=== PATIENT | female | born 1960 | race Caucasian/White ===

== ENCOUNTER 2017-01-09 10:25 | Day surgery (SDC) | payer OTHER ==
[~2017-01-09] VITALS: Ht 165.1 cm; Wt 52.0 kg
[~2017-01-09 10:25] MED LIST: 0.9% Sodium Chloride 1,000 ML IV SCH; AMIT10TA6 PO; AMT25T PO; BUTA1CAP39 PO; CLON1TAB PO; ESTR1PAT81 TRANSDERM; LAMO25TA2 PO; MIRA25TA PO; MULT-1093 PO; OMEG-38 PO; OMEP20CA11 PO; PHEN-777 PO; Sodium Chloride LOK Flush 10 mL Syringe IV PRN; VIT1TABL83 PO; fentaNYL-PF 50 mCg/mL 2 mL Inj IVPUSH PRN
[2017-01-09] MEDS ORDERED: RANI150T11 PO (11:01)
[2017-01-09] MEDS ORDERED: PROZ20 PO (11:01)
[2017-01-09] MEDS ORDERED: RES30 PO (11:01)
[2017-01-09 11:02] VITALS: BP 115/67; PULSE 72; RESP 16; O2SAT 100
[2017-01-09 11:54] VITALS: BP 103/55; PULSE 58; RESP 14; O2SAT 99
[2017-01-09 12:05] VITALS: BP 101/54; PULSE 71; RESP 14; O2SAT 95
[2017-01-09 12:09] VITALS: BP 102/66; PULSE 71; RESP 14; O2SAT 96
--- NOTE | 2017-01-09 13:05 | ENDO ---
[address] [address] ENDOSCOPY PROCEDURE PATIENT: KRISTIAN ARROYO : 1960 MR#: [id number] ADMIT: 01/09/2017 JOB ID: [id number] DATE: 01/09/2017 TYPE OF OPERATION: Esophagogastroduodenoscopy with biopsy. PREOPERATIVE DIAGNOSIS(ES): Gastroesophageal reflux disease. POSTOPERATIVE DIAGNOSIS(ES): Mild nonerosive gastritis, status post biopsy. ANESTHESIA: Fentanyl 125 mcg, versed 9 mg IV administered. COMPLICATIONS: None. BLOOD LOSS: Minimal. DESCRIPTION OF PROCEDURE: After risks and benefits were explained to the patient, informed consent was obtained. After anesthesia administered, an upper endoscope was inserted into the mouth, intubated to the esophagus, stomach, second portion of duodenum and mucosa carefully examined. After procedure was done, the scope was withdrawn and the procedure terminated. FINDINGS: Upon inspection of the esophagus, esophagus was normal without masses, ulcers, or lesions. Z-line located at 40 cm from the incisors. Upon entering the stomach, there was mild nonerosive gastritis that was seen. No masses, ulcers were seen. Retroflexion was normal. Duodenal bulb, first and second portion were normal. Biopsied in antrum, body, mid, and distal esophagus. IMPRESSION: Mild nonerosive gastritis, status post biopsy. RECOMMENDATIONS: Await pathology results. Follow up in GI clinic as needed.
--- NOTE | 2017-01-12 14:32 | PATH ---
SURGICAL PATHOLOGY Attending Physician:Chris Tubbs MD CASE STATUS: Signed Out PATIENT NAME: KRISTIAN ARROYO PID: [id number] : 1960 DATE COLLECTED:01/09/2017 16:41 SPECIMEN: 1: Gastric, Biopsy 2: Gastric, Biopsy 3: Esophagus, Biopsy 4: Esophagus, Biopsy CLINICAL HISTORY: 1). GASTRIC ANTRUM (RULE OUT H.PYLORI) 2). GASTRIC BODY 3). DISTAL ESOPHAGUS 4). MID ESOPHAGUS FINAL DIAGNOSIS: 1.GASTRIC ANTRUM BIOPSY: DIFFUSE MILD TO MODERATE CHRONIC GASTRITIS INVOLVING ANTRAL MUCOSA. Immunohistochemistry for Helicobacter pending, to be reported by addendum. Negative for intestinal metaplasia. Negative for dysplasia and malignancy. 2.GASTRIC BODY BIOPSIES: DIFFUSE MILD CHRONIC GASTRITIS INVOLVING FUNDIC MUCOSA. Immunohistochemistry for Helicobacter pending, to be reported by addendum. Negative for intestinal metaplasia. Negative for dysplasia and malignancy. 3.BIOPSIES, DISTAL ESOPHAGUS: FRAGMENTS OF SQUAMOUS EPITHELIUM WITH NO GASTRIC-TYPE EPITHELIUM IDENTIFIED. Negative for significant atypia. Negative for intraepithelial eosinophils. 4.MID ESOPHAGUS BIOPSIES: FRAGMENTS OF SQUAMOUS EPITHELIUM NEGATIVE FOR ATYPIA. Negative for intraepithelial eosinophils. ICD10 K29.70 GROSS DESCRIPTION: The specimens are received in formalin, labeled with the patient's name, and sublabeled as the following: (1) gastric antrum + r/o H. pylori; (2) gastric body; (3) distal esophagus; (4) mid esophagus. (1) The specimen consists of a fragment of hartman-white glistening rubbery translucent tissue (0.7 x 0.3 x 0.2 cm). Section code: (1A) tissue. Specimen entirely submitted. (2) The specimen consists of multiple fragments of harmtan-white glistening membrane semitranslucent tissue (0.7 x 0.3 x 0.2 cm in aggregate). Section code: (2A) tissue. Specimen entirely submitted. (3) The specimen consists of multiple fragments of thao-white glistening translucent tissue (0.5 x 0.2 x 0.2 cm in aggregate). Section code: (3A) tissue. Specimen entirely submitted. (4) The specimen consists of multiple fragments of clear colorless glistening tissue (0.8 x 0.3 x 0.1 cm in aggregate). Section code: (4A) tissue. Specimen entirely submitted. 01/10/17 JM MICRO DESCRIPTION: See diagnosis. ICD-9 CODES: CPT CODES: 1: 82967, 07512 2: 42142, 35656 3: 63973 4: 88252 PROCEDURE/ADDENDA: Immunohistochemistry SPI Interpretation {Not Entered} Results-Comments Immunohistochemistry Results: 1.GASTRIC ANTRUM BIOPSY: NEGATIVE FOR HELICOBACTER PYLORI BY IMMUNOHISTOCHEMISTRY. 2.GASTRIC BODY BIOPSY: NEGATIVE FOR HELICOBACTER PYLORI BY IMMUNOHISTOCHEMISTRY. This test was developed and its performance characteristics determined by [employer]. It has not been cleared or approved by the U. S. Food and Drug Administration. The FDA has determined that such clearance or approval is not necessary. This test is used for clinical purposes. It should not be regarded as investigational or for research. Electronically Signed Out Gordon Greene MD Electronically Signed Out Gordon Greene MD [facility] [address], [place] [address] Technical component performed at [facility], [facility] [address], [place], [address]
== END 2017-01-09 23:59 | disposition home or self-care (01) ==
LOC: END 10:25
PROVIDERS: ATTEND Internal Medicine Gastroenterology
DX: K21.9 Gastro-esophageal reflux disease without esophagitis (principal); K29.50 Unspecified chronic gastritis without bleeding
CPT/HCPCS: 43239; 88305; 88342; 99152; 99153; J2250; J3010; J7030

== ENCOUNTER → 2017-02-18 | Day surgery (SDC) | payer OTHER ==
[2017-02-18] VITALS (12 sets, daily range): BP systolic 77–127; BP diastolic 36–68; PULSE 55–66; RESP 12–16; O2SAT 95–98
[~2017-02-18] VITALS: Ht 167.6 cm; Wt 53.8 kg
[~2017-02-18] MED LIST changes: -0.9% Sodium Chloride 1,000 ML IV SCH; -AMIT10TA6 PO; -AMT25T PO; +Botulinum Toxin Type-A 100 unit Inj IM ONE; +CeFAZolin Inj 2 GM in IV Premix 1 EACH IV SCH; +Dexamethasone 4 mg/mL Inj IVPUSH PRN; +Dexamethasone 4 mg/mL Inj ONE; +EPHEDrine Sulfate 50 mg/mL Inj IVPUSH PRN; +ESOM40CA41 PO; +FLUO10CA30 PO; +HYDROmorphone 1 mg/mL Inj IVPUSH PRN; +LACT1CAP75 PO; +Lactated Ringer's 1,000 ML IV SCH; +Lactated Ringer's 500 ML IV PRN; -MIRA25TA PO; +MetoCLOpramide 5 mg/mL 2 mL Inj IVPUSH PRN; +MetoCLOpramide 5 mg/mL 2 mL Inj ONE; -OMEP20CA11 PO; +Ondansetron 2 mg/mL 2 mL Inj IVPUSH PRN; +Ondansetron 2 mg/mL 2 mL Inj ONE; +Phenylephrine 10,000 mCg/mL Inj IVPUSH PRN; +Propofol 10,000 mCg/mL 20 mL Inj ONE; +RES30 PO; -Sodium Chloride LOK Flush 10 mL Syringe IV PRN; -fentaNYL-PF 50 mCg/mL 2 mL Inj IVPUSH PRN
[2017-02-18] MEDS: Lactated Ringer's 1,000 ML IV SCH ×2 (07:44→09:30)
--- NOTE | 2017-02-18 09:20 | PCM.HPANE ---
Patient Data Surgeon Admitting Provider: Attending Provider:Nedra Isabel MD Primary Care Physician:Feli Mejia PA-C Other Provider:Jose Maria Fisher Anesthesia Reason for Visit Overactive Bladder, Interstitial Cystitis Ht/WT & BMI Height (Feet): 5 Height (Inches): 6.00 Weight (Kilograms): 53.8 Body Mass Index 19.00 Allergies Coded Allergies: nitrofurantoin (Verified Allergy, Severe, Hives, 02/12/17) Past Anesthesia History Anesthesia History: Denies:: Abnormal Airway, Anesthesia Reactions, Difficult Intubation, Fam Anesthesia Reaction, Fam Malignant Hypertherm, Malignant Hyperthermia Diabetes History Hx Diabetes?: No MRSA MRSA: No Medications Home Meds Incl Beta Marcella: No Reported Medications Fluoxetine (Prozac)10 Mg Dgvoamy31 Mg PO DAILY Ref 0 02/12/17 Lactobacillus Combo No.10 (Probiotic)1 Each Capsule1 Each PO 02/12/17 Esomeprazole Magnesium (Nexium)40 Mg Capsule.dr40 Mg PO BID Ref 0 02/12/17 Temazepam 30 Mg Cap30 Mg PO HS PRN For Insomnia 30 Days Ref 0 01/09/17 Phenazopyridine 200 Mg Xymglx809 Mg PO TID PRN For Urinary Retention Ref 0 01/08/17 Multivitamin-Min/Iron/FA/Vit K (Multi-Day Plus Minerals Tablet)18 Mg Iron-400 Mcg-25 Mcg Tablet1 Each PO DAILY 01/08/17 Lamotrigine (Lamictal)25 Mg Hmtnpw69 Mg PO DAILY #30 TABLET Ref 0 01/08/17 Clonazepam (Klonopin)1 Mg Tablet1 Mg PO DAILY PRN For Anxiety Ref 0 01/08/17 Randolph-3/Dha/Epa/Fish Oil (Fish Oil 1,000 mg Softgel)1 Each Capsule1 Each PO DAILY 01/08/17 Butalbital/Acetamin/Caff 50-300-40 mg (Fioricet 50-300-40 mg)1 Each Capsule1 Capsule PO Q4H PRN For Headache Ref 0 01/08/17 Estradiol 0.05 mg/24 hr Patch 1 Each Patch.tdwk1 Patch TRANSDERM WEEKLY Ref 0 01/08/17 Vit B Comp/C/FA/Iron/Vit E (Vitamin B Complex Tablet)1 Each Tablet1 Each PO DAILYWD 01/08/17 Discontinued Reported Medications Ranitidine (Zantac)150 Mg Azulkn750 Mg PO DAILY PRN For Dyspepsia or Heartburn 01/09/17 Fluoxetine (Prozac)20 Mg Uowvion48 Mg PO DAILY Ref 0 01/09/17 History History of ENT Problems?: No HEENT History: Denies:: Abnormal Airway Cataracts Difficult Intubation Dysphagia Glaucoma Hearing Problem Sinus Problem TMJ Denture Type: None Teeth Condition: Within Normal Limits Hx of Heart Problems?: No Cardiovascular History: Denies:: AICD Pacemaker Peripheral Vascular Valvular Heart Disease Hx of Respiratory Problem?: No Respiratory History: Denies:: Use of C-PAP Machine Hx Neurologic Problems?: Yes Neurological History: Positive for:: Headaches (daily headaches) Denies:: Alzheimer's Disease CVA Dementia Dizziness Multiple Sclerosis Parkinson's Disease Seizures TIA Hx of GI Problems?: Yes Hx of Problems?: No Genitourinary History: Denies:: HX of Hemodialysis Kidney Stones Urinary Tract Infection HX of Peritoneal Dialysis: No Female Hx: Positive for:: Problems with Breasts? (2007) Denies:: Currently Skin History: Denies:: History Skin Disorders? Pressure Ulcers Hx Musculoskeletal Problems?: No Musculoskeletal History: Denies:: Back Injury Degenerative Joint Fibromyalgia Joint Replacement Musculoskeletal Trauma Myasthenia Gravis Osteoarthritis Rheumatoid Arthritis Systemic Lupus Psycho Social History: Positive for:: Anxiety Hx Depression (lamictal, Prozac) Hx Surgeries?: Yes (2007 hysterectomy, 2015 bladder hydro destention, EGD) Hx Any Other Health Problems?: Yes Other History: Positive for:: Hospitalization (1968 tonsillectomy) Denies:: Cancer Endocrine Disease Thyroid Disease History Blood Transfusions: Positive for:: Accept Blood Products? Denies:: Blood Transfusions Hx Diabetes: No Hx Alcohol Use: NoHx Substance Use: No Stop/Bang Treated for Sleep Apnea?: No Do You Have a CPAP Machine?: No S-Snoring: Do You Snore Loudly: No T-Tired: feel tired, fatigued: Yes O-Obsered: Observed not breath: No P-Blood Pressure: treated: No B- Body Mass Index > 35 kg/m2: No A- Age over 50: Yes N- Neck Large Circumference: No G- Gender Male: No GILMA Total Score: 2 GILMA Risk Assessment: Low Risk, <3 Yes Risk Assessment Category Category 1A: Patient has history of documented sleep apnea, and HAS NOT received any narcotic, sedative or anesthesia administration during this stay. Category 1B: Patient has history of documented sleep apnea, and HAS received any narcotic , sedative or anesthesia administration during this stay Category 2: Patient has SUSPECTED Obstructive Sleep Apnea, and HAS received any narcotic , sedative or anesthesia administration during this stay. Category 3: Patient has SUSPECTED Obstructive Sleep Apnea and HAS NOT received narcotic, sedative or anesthesia administration during this stay. Category 4: Outpatient in Procedural Areas with known sleep apnea or who screen positive for High Risk via the STOP/BANG questionnaire. Exam Exam Vital Signs Vital Signs Date Time Temp Pulse Resp B/P Pulse Ox O2 Delivery O2 Flow Rate FiO2 02/18/17 08:08 36.7 66 16 103/58 98 Room Air General Appearance: Oriented X3 HEENT/AIRWAY: MP 2 Lungs: Normal Air Movement Heart: Regular Rate/Rhythm Meds/Labs/Diagnostics Admission Meds Current Medications Lactated Ringer's (Lr) 1,000 ml @ 120 mls/hr Q8H20M IV Last administered on t 07:44; Start 02/18/17 at 05:00; Stop 02/18/17 at 13:19 Plan Impression Patient chart reviewed, patient interviewed and anesthestic plan with risks, benefits, and alternatives discussed, and informed consent obtained. ASA Physical Status: ASA2 Mod Systemic Disease Anesthetic Plan: GA Bene/Risks/Altern/Consents: Yes HP Complete Prior to Induction: Yes Roshan Meier MD Feb 18, 2017 09:20
[2017-02-18] MEDS: fentaNYL-PF 50 mCg/mL 2 mL Inj IVPUSH PRN ×2 (10:49→10:58)
--- NOTE | 2017-02-18 11:26 | OP ---
[address] [address] OPERATIVE REPORT PATIENT: KRISTIAN ARROYO : 1960 MR#: [id number] ADMIT: 02/18/2017 JOB ID: [id number] DATE OF SURGERY: 02/18/2017 PREOPERATIVE DIAGNOSIS(ES): 1. Lower urinary tract symptoms. 2. Interstitial cystitis. POSTOPERATIVE DIAGNOSIS(ES): 1. Lower urinary tract symptoms. 2. Interstitial cystitis. PROCEDURE PERFORMED: Cystoscopy and Botox intravesical injections (100 units). SURGEON: Nedra Isabel MD RECYCLING ASSISTANT: None. FINDINGS: Normal-appearing bladder with bilateral orthotopic ureteral orifices. ANESTHESIA: General. ESTIMATED BLOOD LOSS: 1 mL. DRAINS: None. SPECIMENS: None. COMPLICATION: None. CONDITION: Stable. INDICATIONS FOR PROCEDURE: The patient is a 56-year-old woman with interstitial cystitis and significant problems with urinary urgency and frequency. She has tried medical management for her symptoms. She now presents for Botox injections. DESCRIPTION OF PROCEDURE: After informed was obtained, the patient was taken to the operating room. A time-out was performed identifying correct patient, surgical site, and procedure. General anesthesia was induced. She was given intravenous antibiotics just prior to the start of the procedure. She was placed in the lithotomy position and all pressure points were identified and appropriately padded. Her genitals were then prepped and draped in the usual sterile fashion. A 22-Zimbabwean rigid cystoscope was applied to the patient's urethra and advanced into the bladder. The bladder was drained. The bladder was systematically inspected. It was normal. A total of 100 units of Botox was reconstituted in 20 mL of sterile injectable saline and injected in equal aliquots. This was distributed throughout the bladder wall avoiding the ureteral orifices. The patient appeared to tolerate the procedure well. She was reversed from general anesthesia and taken to PACU in good and stable condition. [facility]ITAL[facility]
--- NOTE | 2017-02-18 11:32 | PCM.ANEP1 ---
Post Anesthesia PACU Phase 1 Assessment Vital Signs Vital Signs Date Time Temp Pulse Resp B/P Pulse Ox O2 Delivery O2 Flow Rate FiO2 02/18/17 11:01 55 12 103/63 97 Room Air 02/18/17 10:50 55 16 102/55 98 Room Air 02/18/17 10:40 58 16 126/68 98 Room Air 02/18/17 10:35 36.4 61 14 127/66 97 Room Air 02/18/17 10:30 59 15 126/62 98 Room Air 02/18/17 10:25 66 14 119/57 95 Room Air 02/18/17 10:20 64 13 98/52 95 Room Air 02/18/17 10:15 56 13 91/44 97 Simple Mask 8 02/18/17 10:10 60 13 89/44 98 Simple Mask 8 02/18/17 10:05 36.1 57 16 77/36 98 Simple Mask 8 02/18/17 08:08 36.7 66 16 103/58 98 Room Air Anesthetic Administered: GA Level of Alertness: Awake, talking Pain: No Nausea or Vomiting: No CV Function & Hydration Stable: Yes Airway Device: Lungs: Normal Air Movement PACU Phase 2 Assessment Patient Instructions Provided: N/A Roshan Meier MD Feb 18, 2017 11:32
== END | disposition home or self-care (01) ==
LOC: SAS 07:35
PROVIDERS: ATTEND Urology
DX: N30.10 Interstitial cystitis (chronic) without hematuria (principal); N32.81 Overactive bladder; R39.15 Urgency of urination; R35.0 Frequency of micturition; R35.1 Nocturia
CPT/HCPCS: 52287; J0585; J0690; J1100; J2405; J2765; J3010; J7120